=== PATIENT | female | born 1960 | race Caucasian/White ===

== ENCOUNTER → 2020-05-18 | Outpatient (CLI) | payer BC | END | disposition home or self-care (01) | LOC: RADMRIMAIN 19:06 | PROVIDERS: ATTEND Family Medicine | DX: Z53.9 Procedure and treatment not carried out, unspecified reason (principal) ==

== ENCOUNTER → 2020-05-20 | Outpatient (CLI) | payer BC ==
--- NOTE | 2020-05-20 22:37 | MR ---
EXAMINATION TYPE: MR brain/cspine wo DATE OF EXAM: 05/20/2020 COMPARISON: 12/05/2009 HISTORY: Headaches, parasthesia of left arm. Prior cervical spine surgery. CONTRAST: Performed utilizing 0 mL intravenous Gadavist gadolinium contrast. TECHNIQUE: Multiplanar, multiecho imaging on a 3.0 [place] magnet is performed through the brain. Stud y is performed within 24 hours of arrival to the hospital. The craniovertebral junction is normal. The pituitary is normal. Diffusion-weighted imaging is performed. No abnormal hyperintensity is present to suggest an acute i ntracranial infarct or acute ischemic change. Mild subtle white matter changes are present in the periventricular white matter. Some minimal change may be within the khushbu. Ventricles and sulci are mildly prominent for the patient age. IMPRESSIONS: 1. Mild age-related atrophy EXAMINATION TYPE: MR brain/cspine wo DATE OF EXAM: 05/20/2020 COMPARISON: None HISTORY: Headaches, parasthesia of left arm. Prior cervical spine surgery. CONTRAST: Performed utilizing 0 mL intravenous Gadavist gadolinium contrast. TECHNIQUE: Multiplanar multiecho imaging on a 3.0 [place] magnet is performed through the cervical spin e. FINDINGS: The craniovertebral junction is normal. Vertebral body alignment is normal. Anterior cer vical fusion is present C5 4 through C6. This causes susceptibility artifact and some limitation. Not e is made of increased signal at the T2 level. Finding could be related to hemangioma. C7-T1: No focal disc herniation or significant disc bulge is evident. No spinal canal stenosis or n eural foraminal stenosis is present. C6-7: Susceptibility artifact limits evaluation of the anterior thecal sac. Cord deformity is not eric ntified. No spinal canal stenosis or neural foraminal stenosis present.. C5-6: Some central endplate spurring is present which may have mild anterior thecal sac compression. This comes in close approximation with the spinal cord. No cord deformity is evident. No AP spinal ca nal stenosis present. Susceptibility artifact may cause this spurring to be overestimated. C4-5: Mild endplate changes have anterior thecal sac flattening. No AP spinal canal stenosis present. Mild foraminal narrowing is present.. C3-4: May be some central bulging with mild to moderate anterior thecal sac compression best visualiz ed in the axial plane. Endplate extension beyond C3 may be present. Subligamentous disc herniation ma y be present. No AP spinal canal stenosis is present.. C2-3: Based disc bulge has moderate anterior thecal sac compression. No cord contact or cord deformit y is evident. No spinal canal stenosis or neural foraminal stenosis.. IMPRESSIONS: 1. Postsurgical changes C5-C7 causing limitation. 2. Subligamentous disc herniations likely present C2-3 C3-4 with moderate anterior thecal sac nicol n[place]. 3. Some endplate spurring may be present C5-6 which potentially could have cord contact.
== END | disposition home or self-care (01) ==
LOC: RADMRIMAIN 16:08
PROVIDERS: ATTEND Family Medicine
DX: M50.21 Other cervical disc displacement, high cervical region (principal); Z98.1 Arthrodesis status
CPT/HCPCS: 70551; 72141

== ENCOUNTER 2022-03-09 07:58 | Day surgery (SDC) | payer BC ==
[2022-03-07 15:48] VITALS: BMI 39.4
[~2022-03-09 07:58] MED LIST: Pre Op ABX Message 1 EACH MISC MISCELLANE ONE
[2022-03-09] MEDS ORDERED: ONDANSETRON 4 MG/2 ML VIAL ONE (08:30)
[2022-03-09] MEDS ORDERED: LACTATED RINGERS 1,000 ML IV ONE ×2 (08:47→11:56)
[2022-03-09] MEDS ORDERED: fentaNYL (PF) 50 MCG/ML 2 ML AMP IVP ONE (08:52)
[2022-03-09] MEDS ORDERED: MIDAZOLAM 2 MG/2 ML VIAL IVP ONE (08:52)
[2022-03-09] MEDS ORDERED: ONDANSETRON 4 MG/2 ML VIAL IVP ONE ×2 (09:13→11:40)
[2022-03-09] MEDS ORDERED: DEXAMETHASONE SOD PHOSPHATE 4 MG/ML 1 ML VIAL IVP ONE (09:14)
[2022-03-09] MEDS ORDERED: SCOPOLAMINE 1 MG/72 HR PATCH TRANSDERM ONE (09:20)
[2022-03-09] MEDS ORDERED: PROPOFOL 10 MG/ML 20 ML VIAL IV ONE (09:27)
[2022-03-09] MEDS ORDERED: LIDOCAINE 2% INJ 20 MG/ML (2 ML VIAL) ONE (09:27)
[2022-03-09] MEDS ORDERED: MIDAZOLAM 2 MG/2 ML VIAL ONE (09:27)
[2022-03-09] MEDS ORDERED: PHENYLEPHRINE-0.9% NACL SYG 1,000 MCG/10 ML SYRINGE ONE (09:27)
[2022-03-09] MEDS ORDERED: ROPIVACAINE 5 MG/ML 30 ML VIAL ONE (09:27)
[2022-03-09] MEDS ORDERED: ePHEDrine 50 MG/ML 1 ML VIAL ONE (09:27)
[2022-03-09] MEDS ORDERED: SUCCINYLCHOLINE CHLORIDE 100 MG/5 ML SYR IV ONE (09:27)
[2022-03-09] MEDS ORDERED: fentaNYL (PF) 50 MCG/ML 2 ML AMP ONE (09:27)
[2022-03-09] MEDS ORDERED: SODIUM CHLORIDE 0.9% (PF) 10 ML VIAL ONE (09:27)
[2022-03-09 11:18] VITALS: TEMP 97
[2022-03-09 11:26] VITALS: RESP 16
--- NOTE | 2022-03-09 11:42 | P.ANPRN ---
Procedure Note - Anesthesia - Nerve Block Performed Left Adductor Canal Time Out Performed: Yes (08:51) Date of Procedure: 03/09/22 Procedure Start Time: :51 Procedure Stop Time: :58 Location of Patient: PreOp Indication: Acute Post-Operative Pain, Requested by Surgeon (Dr Toth) Sedation Type: Sedate with meaningful contact maintained Preparation: Sterile Prep Position: Supine Catheter: None Needle Types: Pajunk Needle Gauge: 21 Ultrasound used to visualize needle placement: Yes Ultrasound used to observe medication spread: Yes Injectate: 0.5% Ropivacaine (see comment for volume) (15cc +5cc PF Normal saline) Blood Aspirated: No Pain Paresthesia on Injection Noted: No Resistance on Injection: Normal Image Stored and Saved: Yes Events: Uneventful and Well Tolerated
--- NOTE | 2022-03-09 11:43 | P.ANPRN ---
Procedure Note - Anesthesia - Nerve Block Performed Left Popliteal Time Out Performed: Yes Date of Procedure: 03/09/22 Procedure Start Time: 08:59 Procedure Stop Time: 09:06 Location of Patient: PreOp Indication: Acute Post-Operative Pain, Requested by Surgeon Sedation Type: Sedate with meaningful contact maintained Preparation: Sterile Prep Position: Right Lateral Catheter: None Needle Types: Pajunk Needle Gauge: 21 Ultrasound used to visualize needle placement: Yes Ultrasound used to observe medication spread: Yes Injectate: 0.5% Ropivacaine (see comment for volume) (15cc +5cc PF Normal saline) Blood Aspirated: No Pain Paresthesia on Injection Noted: No Resistance on Injection: Normal Image Stored and Saved: Yes Events: Uneventful and Well Tolerated
[2022-03-09 12:39] VITALS: BP 129/78; PULSE 96
--- NOTE | 2022-03-09 12:53 | P.OP ---
Date of Procedure: 03/09/22 Preoperative Diagnosis: 1. Achilles tendinitis left 2. Calcaneal spur left 3. Gastroc equinus left Postoperative Diagnosis: 1. Same 2. Same 3. Same Procedure(s) Performed: 1. Secondary repair of left Achilles tendon 2. Gastroc recession left 3. Excision of calcaneal spur left Implants: Arthrex speed bridge Anesthesia: GETA Surgeon: Paulino Toth Estimated Blood Loss (ml): 3 Pathology: none sent Condition: stable Disposition: PACU Description of Procedure: Prior to the patient being brought to the operating room, anesthesia administered nerve block on the surgical extremity. Once completed, the patient was taken into the operating room. Timeout was taken to confirm correct patient identifiers, correct laterality of surgery, and correct procedure. When all staff in the room were in agreement with the timeout, the patient was induced a nd placed under general anesthesia. The patient was then placed in the prone position on the operating room table. Appropriate padding was placed beneath the patient's face as well as in the thoracic area. Once anesthesia was satisfied with the patient positioning, a well-padded tourniquet was placed on the thigh. Then the leg was prepped and draped in the usual manner. The leg was exsanguinated and the tourniquet inflated to 250 mmHg. Attention was directed over the posterior aspect of the leg, where the gastroc recession was performed. A linear midline incision was made distal to the g astroc muscle belly. The incision was deepened down to the subcutaneous layer careful to identify, avoid, and retract any neurovascular structures and cauterize any bleeding vessels. Blunt dissection was carried down to level the deep fascia. The fascia was incised and then bluntly dissected off the gastroc aponeurosis. A transverse incision was made through the aponeurosis from medial to lateral. Once completed the ankle was dorsiflexed and a visible gap. And the aponeurosis, indicating a full release. The wound is thoroughly irrigated. The subcutaneous layer was closed with 4-0 Vicryl. And skin closure done with 3-0 Stratafix in a running subcuticular manner. Then attention was directed over the Achilles insertion. A curvilinear incision was made starting in the medial side of the Achilles tendon then curving posteriorly over the insertion point. The incision was deepened down to the subcutaneous layer, careful to identify, avoid, and retract any neurovascular structures and cauterize any bleeding vessels the skin and subcutaneous layers were dissected in a full-thickness fashion off the Achilles tendon. Incisions are made on the anterior aspect of the Achilles tendon, on the medial and lateral aspects, and extended down to the insertion. The Achilles insertion was then sharply removed off the posterior aspect of the calcaneus. There was a large calcific density in the body of the Achilles tendon superior to the insertion point. This is carefully dissected and removed. Any abnormal tissue in the Achilles tendon insertion was also sharply debrided. Once that was completed attention was directed to the posterior calcaneus where there was a large calcaneal spur. An osteotome was used to remove all the abnormal bony growth in the posterior calcaneus. This also allowed for exposure the bone to help facilitate the reattachment of the Achilles tendon. The area was thoroughly irrigated with sterile saline. The distal end of the Achilles tendon was then grasped and pulled distally while holding the ankle at 90. It was brought into contact at the calcaneus to vicki the insertion point. A transverse line was made and marking the insertion point. Then cortez were made for the drill holes for the anchoring system. The holes were done medial and lateral and approximate 1 cm from the vicki. A total 4 holes were made. All holes were then tapped. The anchors with the sutures attached to the more placed in the most superior holes. Anchors were advanced down to proper depth. With the Achilles tendon pulled distally to the attachment point line, suture was passed through the medial and lateral aspects of the tendon and pulled through. Then the [place] were cut and tension was placed on the suture down to the attachment point. Utilizing one suture from each anchor, the ends were pulled through the 4.75 swivel lock anchor which were then aligned with their corresponding drill holes. Utilizing proper tensioning techniques and keeping tension on the Achilles tendon to hold the near the insertion point, the anchor was inserted burying the suture within the calcaneus and locking in place. This was repeated for the opposite side. Once completed the ankle was taken through range of motion to test the integrity of the attachment point. It was found to be firmly attached to the posterior aspect of the calcaneus. All the extra suture was then cut flush with or anchors. Any thickened Achilles tendon was also sharply removed at this point. The area was thoroughly irrigated with sterile saline. The subcutaneous layer was closed with 4-0 Monocryl and skin closure done with rosmery. Dermal glue and Steri-Strips are placed across the proximal incision. Both incisions were covered with an Arthrex jumpstart dressing. A dry bulky dressing was then applied to the leg. The tourniquet was released and capillary refill return to all digits on the foot. The patient was then placed in a well- padded, well molded plaster posterior mold/sugar tong splint. The ankle was held at 90 until the splint was fully dried. Then the patient was rolled back to the transfer table. Anesthesia was reversed and he was not medically extuba cassie. The patient tolerated the above procedure and anesthesia well, and went to recovery with vital signs stable.
== END 2022-03-09 12:55 | disposition home or self-care (01) ==
LOC: OR 07:58
PROVIDERS: ATTEND Podiatrist
DX: M77.32 Calcaneal spur, left foot (principal); M76.62 Achilles tendinitis, left leg; M62.462 Contracture of muscle, left lower leg; G89.18 Other acute postprocedural pain; I12.9 Hypertensive chronic kidney disease with stage 1 through stage 4 chronic kidney disease, or unspecified chronic kidney disease; N18.9 Chronic kidney disease, unspecified; E78.5 Hyperlipidemia, unspecified; K21.9 Gastro-esophageal reflux disease without esophagitis; Z79.899 Other long term (current) drug therapy; Z79.82 Long term (current) use of aspirin; Z88.6 Allergy status to analgesic agent; Z80.0 Family history of malignant neoplasm of digestive organs; Z80.1 Family history of malignant neoplasm of trachea, bronchus and lung
CPT/HCPCS: 64447; 64445; 76942; 27654; 27687; 28119; C1713; J2250; J1100; J2405; J3010; J2795; J2370; J0330; J2704; J2001

== ENCOUNTER 2022-12-13 09:15 | Day surgery (SDC) | payer BC ==
[2022-12-11 10:53] VITALS: BMI 39.1
[~2022-12-13 09:15] MED LIST changes: +ALPRAZolam 0.25 MG TAB PO PRN; +ALPRAZolam 0.5 MG TAB PO PRN; +ASPIRIN 325 MG TAB PO STA; +ATORVASTATIN 80 MG TAB PO STA; +HEPARIN SODIUM,PORCINE 10,000 UNIT in SODIUM CHLORIDE 0.9% 1,000 ML IRRIGATION PRN; +HEPARIN SODIUM,PORCINE 2,500 UNIT in SODIUM CHLORIDE 0.9% 250 ML IRRIGATION PRN; +NITROGLYCERIN SL TABS 0.4 MG TAB SUBLINGUAL PRN; -Pre Op ABX Message 1 EACH MISC MISCELLANE ONE; +SODIUM CHLORIDE 0.9% 1,000 ML in EMPTY BAG 1 BAG IV SCH
[2022-12-13 09:38] VITALS: RESP 18; TEMP 97.6
[2022-12-13] MEDS ORDERED: fentaNYL (PF) 50 MCG/ML 2 ML AMP IV ONE (11:30)
[2022-12-13] MEDS: MIDAZOLAM 2 MG/2 ML VIAL IV ONE ×2 (11:30→11:37)
[2022-12-13] MEDS ORDERED: LIDOCAINE 1% INJ 10MG/ML (5 ML VIAL-PF) SQ ONE (11:31)
[2022-12-13] MEDS ORDERED: VERAPAMIL SYRINGE (5 MG/10 ML) INTRAARTER ONE ×2 (11:32→11:43)
[2022-12-13] MEDS: VERAPAMIL SYRINGE (5 MG/10 ML) INTRAARTER ONE ×3 (11:33→11:41)
[2022-12-13] MEDS: NITROGLYCERIN 1000MCG/10ML SYRINGE INTRAARTER ONE ×2 (11:41→11:47)
[2022-12-13] MEDS: HEPARIN SODIUM 1,000 UN/ML (10ML VL) IV ONE ×2 (11:46→11:56)
[2022-12-13] MEDS ORDERED: IOPAMIDOL-370 200ML BTL INJ ONE (12:01)
[2022-12-13 15:47] VITALS: BP 126/52; PULSE 62
--- NOTE | 2022-12-13 16:35 | P.CARDCATH ---
Description of Procedure: PROCEDURES PERFORMED: Left heart catheterization, bilateral coronary angiography, iFR of the RCA INDICATION: Chest pain and dyspnea on exertion concerning for angina CONSENT:I have discussed the risks, benefits and alternative therapies for the above-mentioned procedure and for both sedation/analgesia as well as necessary blood product administration, if indicated, as they pertain to this patient. The patient has indicated understanding and acceptance of the risks and procedures discussed. PROCEDURE: After the risks, benefits and alternatives of the above mentioned procedure explained in detail with the patient, informed consent was obtained. Patient was taken to the catheterization lab and prepped and draped in usual fa shion. 1% lidocaine was used to anesthetize the right radial artery. A 6- Norwegian sheath was placed in the right radial artery using modified Seldinger technique. Left coronary angiography was performed with a 5-Norwegian JL 3.5 catheter and right coronary angiography was performed with a 5-Norwegian JR5 catheter in various views. There was some stenosis of the proximal RCA which may been related to spasm with engagement of the catheter with catheter somewhat deep-seated. With disengagement and nitro there is still 40-50% stenosis and therefore decision made to perform iFR. Heparin was given. A 0.014 pressure wire was advanced into the proximal RCA normalized. It was then advanced once in her distal to the lesion and iFR was performed and was normal at 0.95. The wire was then removed. A 5-Norwegian FR5 catheter was inserted into the left ventricle and pressure measurements were obtained. The right radial sheath was removed and a TR band was placed with hemostasis achieved. The patient tolerated the procedure well. Patient was transported back to the post catheterization holding area in stable condition. Conscious Sedation: Patient was monitored under the direct supervision of myself for conscious sedation using Versed and fentanyl for a total duration of [] minutes HEMODYNAMICS: Ao: 121/76 LV: 118/4, LVEDP 10 SELECTIVE CORONARY ARTERIOGRAPHY: LEFT MAIN: The left main is a large caliber vessel which bifurcates into the LAD and circumflex. There is no significant stenosis. LEFT ANTERIOR DESCENDING CORONARY ARTERY: LAD is a large caliber vessel which wraps around to the apex. There is no significant stenosis. LEFT CIRCUMFLEX CORONARY ARTERY: Left circumflex is a moderate caliber vessel without significant stenosis. RIGHT CORONARY ARTERY: The right coronary artery is a moderate to large caliber vessel which gives off a PDA and PLV branch and is the dominant vessel. There is a proximal RCA 40-50% stenosis which did not improve with nitro and appears to be significant stenosis. Otherwise normal. FINAL IMPRESSION: 1. Relatively normal coronary arteries other than proximal RCA 40-50% stenosis 2. iFR RCA normal at 0.95 3. Normal left sided filling pressures PLAN: 1. Aggressive risk factor modification per most recent ACC/AHA guidelines. 2. Follow-up in the office in 1-2 weeks.
== END 2022-12-13 15:20 | disposition home or self-care (01) ==
LOC: CATHCVL 09:15
PROVIDERS: ATTEND Internal Medicine
DX: I25.10 Atherosclerotic heart disease of native coronary artery without angina pectoris (principal); I47.9 Paroxysmal tachycardia, unspecified; I10 Essential (primary) hypertension; E78.2 Mixed hyperlipidemia; Z82.49 Family history of ischemic heart disease and other diseases of the circulatory system; Z79.82 Long term (current) use of aspirin; Z79.899 Other long term (current) drug therapy; Z82.3 Family history of stroke; Z88.6 Allergy status to analgesic agent
CPT/HCPCS: 93458; 93799; C1769 ×4; C1894; J2250; J2001; J3010; J1644; Q9967